=== PATIENT | male | born 1980 ===

== ENCOUNTER → 2018-10-18 | Outpatient (CLI) | payer OTHER | END | disposition home or self-care (01) | LOC: SONOGRAMA 08:07 | DX: E04.2 Nontoxic multinodular goiter (principal) ==

== ENCOUNTER 2023-09-09 13:24 | Outpatient (CLI) | payer OTHER | END 2023-09-09 13:26 | disposition home or self-care (01) | LOC: SONOGRAMA 13:24 | PROVIDERS: ATTEND Pathology Anatomic Pathology & Clinical Pathology | DX: D34 Benign neoplasm of thyroid gland (principal); E07.89 Other specified disorders of thyroid; D44.0 Neoplasm of uncertain behavior of thyroid gland; E03.8 Other specified hypothyroidism ==